=== PATIENT | male | born 1990 | race Caucasian/White ===

== ENCOUNTER 2016-04-14 14:43 | Emergency (ER) | payer MEDICAID ==
--- NOTE | 2016-04-14 15:04 | Emergency Department Record ---
History of Present Illness - General Chief Complaint: Laceration(s) Stated Complaint: LACERATIN TO RT HAND Source: Patient Mode of Arrival: Ambulatory Limitations: No limitations - History of Present Illness Initial Commments: 25 yo male presents to ED with a CC of a laceration to the right thumb. Patient reports that he was operating a table saw resulting in the injury to the thumb. Patient denies health problems at his baseline, and patient denies any injury. Patient denies weakness to the thumb, and reports that his tetanus was updated 2 years ago. Onset/Timin -: Minutes(s) Extremity Location: Right: Hand Place: Home Context: Accidental Associated Symptoms: None Treatments Prior to Arrival: Bandage - Victor Coma Scale Eye Response: (4) Open spontaneously Motor Response: (6) Obeys commands Verbal Response: (5) Oriented Victor Total: 15 - Related Data Hx Tetanus Toxoid Vaccination: Yes Year of Tetanus Vaccination: 2 Patient Tetanus UTD (within 5 yrs): Yes Previous Rx's Medication Instructions Recorded Cephalexin [Keflex] 500 mg PO QID #40 cap 04/14/16 Allergies Allergy/AdvReac Type Severity Reaction Status Date / Time No Known Drug Allergies Allergy Verified 04/14/16 14:56 Review of Systems Constitutional: Denies: Chills, Fever, Malaise, Night sweats Eyes: Denies: Eye discharge, Eye pain ENT: Denies: Congestion, Ear pain, Epistaxis Respiratory: Denies: Cough, Dyspnea Cardiovascular: Denies: Chest pain, Dyspnea on exertion Endocrine: Denies: Fatigue, Heat or cold intolerance Gastrointestinal: Denies: Abdominal pain, Nausea, Vomiting Genitourinary: Denies: Hematuria, Incontinence, Retention Musculoskeletal: Denies: Arthralgia, Back pain, Gout, Joint swelling Skin: Denies: Bruising, Change in color Neurological: Denies: Abnormal gait, Confusion, Headache, Seizure Psychiatric: Denies: Anxiety Hematological/Lymphatic: Denies: Anemia, Blood Clots Physical Exam - General General Appearance: Alert, Oriented x3, Cooperative, Mild distress Limitations: No limitations - Head Head exam: Atraumatic, Normocephalic, Normal inspection Head exam detail: negative: Abrasion, Contusion, Eddy's sign, General tenderness, Hematoma, Laceration - Eye Eye exam: Normal appearance. negative: Conjunctival injection, Periorbital swelling, Periorbital tenderness, Scleral icterus - ENT Ear exam: negative: Auricular hematoma, Auricular trauma Nasal Exam: negative: Active bleeding, Discharge, Dried blood, Foreign body Mouth exam: negative: Drooling, Laceration, Muffled voice, Tongue elevation - Neck Neck exam: Normal inspection. negative: Meningismus, Tenderness - Respiratory Respiratory exam: Normal lung sounds bilaterally. negative: Respiratory distress, Rhonchi, Stridor, Wheezes - Cardiovascular Cardiovascular Exam: Regular rate, Normal rhythm, Normal heart sounds - GI/Abdominal GI/Abdominal exam: Soft. negative: Distended, Rebound, Rigid, Tenderness - Rectal Rectal exam: Deferred - exam: Deferred - Extremities Extremities exam: Full ROM, Tenderness, Other (FROM of the thumb against resistance, irregular shaped laceration to the tuft of the thumb is present with minimal bleeding.). negative: Calf tenderness, Pedal edema - Back Back exam: Denies: CVA tenderness (R), CVA tenderness (L) - Neurological Neurological exam: Alert, Normal gait, Oriented X3 - Psychiatric Psychiatric exam: Normal affect, Normal mood - Skin Skin exam: Normal color. negative: Abrasion Type of lesion: negative: abrasion Course Vital Signs 04/14/16 14:53 Temperature 97.6 F Pulse Rate [ 76 Pulse Ox Probe] Respiratory 12 Rate Blood Pressure 113/62 [Left] Pulse Ox 98 - Reevaluation(s) Reevaluation #1: 04/14/16 16:11 X-ray right thumb: No fracture, small radio-opaque FB under the nail bed. 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 Procedure Note: Right thumb was anesthetized with 1% Lidocaine w/o epinephrine via digital block, thumb was prepped and draped in sterile fashion, wound (2) lacerations were attempted to close primarily however distal wound could not be closed due to tissue loss. NO FB identified on examination. Wound was closed with (4) 4-0 Prolene sutures, placed in dressing and demonstrated how to perform dressing changes. Patient was started on Keflex as well. Patient was counseled to return to ED for any redness, drainage, increased pain or fever symptoms. Patient appears stable for discharge at this time. 04/14/16 16:17 Disposition Disposition: Discharge Clinical Impression: Thumb laceration Qualifiers: Encounter type: initial encounter Laterality: right Qualified Code(s): S61.011A - Laceration without foreign body of right thumb without damage to nail , initial encounter Disposition: Home, Self-Care Condition: (2) Stable Instructions: Laceration (ED) Additional Instructions: Return to ED if your symptoms worsen or if you have any concerns. Keflex as directed. Dressing changes daily. Follow-up with your family doctor in 5-7 days as directed. Sutures out in 10- 14 days. Prescriptions: Cephalexin [Keflex] 500 mg PO QID #40 cap Forms: Patient Portal Access Time of Disposition: 16:17
[2016-04-14] MEDS ORDERED: CEPHALEXIN 500 MG CAPSULE PO STA (16:15)
--- NOTE | 2016-04-17 09:30 | RADIOLOGY REPORT ---
EXAM: RIGHT THUMB, THREE VIEWS HISTORY: LACERATION DISTAL RIGHT THUMB FROM TABLE SAW TODAY. TECHNIQUE: Three views of the right thumb were provided without comparison studies. FINDINGS: There is no radiographic evidence of a fracture or dislocation of the right first digit. Soft tissue laceration is noted at the distal aspect of the right first digit. There is a punctate radiopaque density identified underneath the nail bed. Clinical correlation is recommended. IMPRESSION: SOFT TISSUE LACERATION OF THE DISTAL RIGHT FIRST DIGIT IS NOTED DESCRIBED. PUNCTATE RADIOPAQUE DENSITY WITHIN THE NAIL BED IS NOTED. CLINICAL CORRELATION IS RECOMMENDED. JOB NUMBER: [id number] [facility]
== END 2016-04-14 16:43 | disposition home or self-care (01) ==
LOC: ER 14:43
DX: S61.011A Laceration without foreign body of right thumb without damage to nail, initial encounter (principal); M79.5 Residual foreign body in soft tissue; W31.2XXA Contact with powered woodworking and forming machines, initial encounter; Y92.009 Unspecified place in unspecified non-institutional (private) residence as the place of occurrence of the external cause
CPT/HCPCS: 12001; 99283; 99284

== ENCOUNTER 2016-04-27 11:55 | Emergency (ER) | payer MEDICAID ==
--- NOTE | 2016-04-27 12:13 | Emergency Department Record ---
History of Present Illness - General Chief Complaint: Suture removal Stated Complaint: SUTURE REMOVAL Time Seen by Provider: 04/27/16 12:09 Source: Patient, Family Mode of arrival: Ambulatory Limitations: No limitations - History of Present Illness Initial Comments: 25 yo male presents for suture removal and recheck of a thumb injury 2 weeks ago with a table saw. He states no complaints. One suture fell out with issue. No pain, redness or drainage. MD Complaint: Suture/staple removal, Wound re-check Initial Visit For: Other (table saw injury) - Related Data Home Medications Medication Instructions Recorded Confirmed Last Taken No Home Med [NO HOME MEDS] 04/27/16 04/27/16 Unknown Allergies Allergy/AdvReac Type Severity Reaction Status Date / Time No Known Drug Allergies Allergy Verified 04/27/16 12:03 Review of Systems Constitutional: Denies: Chills, Fever ENT: Denies: Congestion Respiratory: Denies: Cough Gastrointestinal: Denies: Diarrhea, Nausea, Vomiting Genitourinary: Denies: Dysuria Musculoskeletal: Denies: Arthralgia, Back pain, Myalgia Skin: Denies: Change in color Neurological: Denies: Headache Psychiatric: Denies: Anxiety Hematological/Lymphatic: Denies: Blood Clots, Easy bleeding, Easy bruising Past Medical History - SOCIAL HISTORY Smoking Status: Never smoker Drug Use: None - RESPIRATORY Hx Respiratory Disorders: No - CARDIOVASCULAR Hx Cardio Disorders: No - NEURO Hx Neuro Disorders: No - GI Hx GI Disorders: No - Hx Genitourinary Disorders: No - ENDOCRINE Hx Endocrine Disorders: No - MUSCULOSKELETAL Hx Musculoskeletal Disorders: No - PSYCH Hx Psych Problems: No - HEMATOLOGY/ONCOLOGY Hx Hematology/Oncology Disorders: No Physical Exam - General General Appearance: Alert, Oriented x3, Cooperative, No acute distress - Head Head exam: Atraumatic - Eye Eye exam: Normal appearance - ENT ENT exam: Normal exam - Neck Neck exam: Normal inspection - Cardiovascular Peripheral Pulses: 2+: Radial (R) - Rectal Rectal exam: Deferred - exam: Deferred - Extremities Extremities exam: Full ROM, Normal capillary refill Image of Hand: 1 - healing avulasion laceration of the thumb. no redness, pus or drainage. scabs present with healing granulation tissue due to avulsion. no sign of infection - Neurological Neurological exam: Alert, Oriented X3 - Psychiatric Psychiatric exam: Normal affect, Normal mood - Skin Skin exam: Dry, Intact, Normal color, Warm. negative: Erythema Course - Reevaluation(s) Reevaluation #1: 3 sutures removed without difficulty the wound is healing without complication of an area of avulsed tissue 04/27/16 12:12 Disposition Disposition: Discharge Clinical Impression: Encounter for Removal of Sutures Disposition: Home, Self-Care Condition: (1) Good Instructions: Suture Removal (ED) Additional Instructions: Return if you have any concerns about the ongoing healing of the laceration Forms: Patient Portal Access Time of Disposition: 12:13
== END 2016-04-27 12:17 | disposition home or self-care (01) ==
LOC: ER 11:55
DX: Z48.02 Encounter for removal of sutures (principal)